=== PATIENT | female | born 1995 | race Hispanic/Latino ===

== ENCOUNTER 2023-04-06 14:00 | Emergency (ER) | payer MEDICAID ==
[~2023-04-06] VITALS: Ht 175.3 cm; Wt 73.9 kg
[2023-04-06 14:53] VITALS: BP 118/77
[2023-04-06 15:19] LABS: HEMATOCRIT 45.1 % (36-48); MEAN CORPUSCULAR HEMOGLOBIN 27.2 pg (27.0-33.0); MEAN CORPUSCULAR HGB CONC 32.4 g/dL (32.0-36.0); MEAN CORPUSCULAR VOLUME 84.1 fL (79-99); RED BLOOD CELL COUNT(AUTO) 5.36 MIL/uL (4.00-5.50); RED CELL DISTRIBUTION WIDTH 15.9 % (11.0-15.5); WHITE BLOOD COUNT (AUTO) 7.8 K/uL (4.8-10.8)
[2023-04-06 15:32] LABS: CREATININE 0.8 mg/dL (0.5-1.5); POTASSIUM 3.5 mmol/L (3.5-5.1)
[2023-04-06 15:35] LABS: APPEARANCE,URINE SL CLOUDY (CLEAR); BILIRUBIN,URINE MODERATE mg/dL (NEGATIVE); COLOR,URINE YELLOW (YELLOW); GLUCOSE, URINE (UA) NEGATIVE (NEGATIVE); KETONES,URINE 5 mg/dL (NEGATIVE); LEUKOCYTE ESTERASE ,URINE NEGATIVE Leu/uL (NEGATIVE); NITRATE,URINE NEGATIVE (NEGATIVE); OCCULT BLOOD,URINE TRACE-INTACT (NEGATIVE); PROTEIN,URINE 100 mg/dL (NEGATIVE); UROBILINOGEN,URINE 0.2 mg/dL (0.2-1.0)
[2023-04-06 15:39] LABS: ALBUMIN 3.8 g/dL (3.5-5.0); TOTAL PROTEIN, SERUM 8.5 g/dL (6.0-8.3)
[2023-04-06 15:41] LABS: HCG,QUALITATIVE URINE NEGATIVE (NEGATIVE)
[2023-04-06] MEDS ORDERED: ONDA4TAB10 PO (15:49)
[2023-04-06] MEDS ORDERED: DICY20TA2 PO (15:49)
[2023-04-06 15:50] LABS: BACTERIA,URINE FEW /HPF (None Seen); MUCUS,URINE MANY LPF (None Seen); SQUAMOUS EPITHELIAL CELL,UR MOD /HPF (0-2)
== END 2023-04-06 15:55 | disposition home or self-care (01) ==
LOC: EDH 14:00
DX: K52.9 Noninfective gastroenteritis and colitis, unspecified (principal)
CPT/HCPCS: 36415; 80053; 81001; 81025; 85027; 87088

== ENCOUNTER 2024-10-14 05:35 | Inpatient (IN) | payer SELFPAY ==
[~2024-10-14] VITALS: Ht 175.3 cm; Wt 81.4 kg
[2024-10-14] VITALS (8 sets, daily range): PULSE 91–137; RESP 18–21; TEMP 103; O2SAT 96–98
[~2024-10-14 05:35] MED LIST: DICY20TA2 PO; ONDA-243 PO
--- NOTE | 2024-10-14 05:46 | NUR ---
COVID, FLU AND STREP SWABS COLLECTED AND SENT
[2024-10-14 05:53] LABS: BASOPHILS # (AUTO) 0.02 K/uL (0.00-0.20); BASOPHILS % (AUTO) 0.2 % (0.0-5.0); EOSINOPHILS # (AUTO) 0.16 K/uL (0.00-0.70); EOSINOPHILS % (AUTO) 1.6 % (0.0-8.0); IMMATURE GRANULOCYTE ABSOLUTE 0.06 K/uL (0-1); LYMPHOCYTES # (AUTO) 0.5 K/uL (1.0-4.8); LYMPHOCYTES % (AUTO) 4.7 % (21.0-51.0); MEAN CORPUSCULAR HEMOGLOBIN 29.3 pg (27.0-33.0); MEAN CORPUSCULAR HGB CONC 33.4 g/dL (32.0-36.0); MEAN CORPUSCULAR VOLUME 87.8 fL (79-99); MONOCYTES # (AUTO) 0.9 K/uL (0.1-1.0); MONOCYTES % (AUTO) 8.5 % (3.0-13.0); NEUTROPHILS # (AUTO) 8.6 K/uL (1.8-7.7); NEUTROPHILS % (AUTO) 84.4 % (40.0-77.0); PLATELET COUNT (AUTO) 263 K/uL (130-400); RED BLOOD CELL COUNT(AUTO) 4.67 MIL/uL (4.00-5.50); RED CELL DISTRIBUTION WIDTH 13.8 % (11.0-15.5); WHITE BLOOD COUNT (AUTO) 10.2 K/uL (4.8-10.8)
[2024-10-14] MEDS ORDERED: IpraTROPium/alBUTERol SULFATE 3 ML SOLUTION IH PRN (06:00)
[2024-10-14 06:08] LABS: SARS-CoV-2, RNA, NAAT NEGATIVE SARS CoV-2 (NEGATIVE)
[2024-10-14 06:12] LABS: RAPID GROUP A STREP positive (NEGATIVE)
[2024-10-14 06:13] LABS: INFLUENZA TYPE A Negative For Type A (NEGATIVE); INFLUENZA TYPE B Negative For Type B (NEGATIVE)
[2024-10-14 06:15] LABS: CREATININE 0.7 mg/dL (0.5-1.0); POTASSIUM 3.5 mmol/L (3.5-5.1)
[2024-10-14] MEDS: MAGNESIUM 2GM PREMIX 50ML 100 ML IV ONE (06:47)
[2024-10-14] MEDS: ondanSETRON 4MG INJ ONE (06:47)
[2024-10-14] MEDS: ALBUTEROL 0.083% 2.5 MG/3 ML INH IH ONE ×2 (06:47→06:49)
[2024-10-14] MEDS: BUDESONIDE 0.5 MG/2 ML INH IH ONE (06:48)
[2024-10-14] MEDS: acetaMINOPHEN 500 MG TABLET ONE (06:48)
[2024-10-14] MEDS: MAGNESIUM 4GM PREMIX 100ML IV STA (06:49)
[2024-10-14] MEDS: acetaMINOPHEN 500 MG TABLET PO STA (06:49)
[2024-10-14] MEDS: ondanSETRON 4MG INJ IVP STA (06:49)
[2024-10-14] MEDS: LACTATED RINGERS 1000ML 1,000 ML IV ONE (06:50)
[2024-10-14] MEDS: Solu-medROL 125MG VIAL IVP ONE (06:50)
--- NOTE | 2024-10-14 06:52 | ERN ---
General Chief Complaint: Sepsis Stated Complaint: FEVER, HEADACHE, COUGH. SOB Time Seen by MD: 05:41 History of Present Illness Initial Comments Mrs Jimenez is a 29-year-old female significant past history of asthma who comes in today short of breath. Patient reports that she has been feeling sick for the last 2 days and states that she has been increasingly worsening shortness of breath. Patient has a history of asthma and takes inhalers but has not had a exacerbation in a long time Allergies: Coded Allergies: No Known Drug Allergies (Unverified Allergy, Unknown, 04/06/23) Home Meds Active Scripts Ondansetron (Ondansetron Odt) 4 Mg Tab.rapdis, 4 MG PO Q6HPRN PRN for NAUSEA/VOMITING for 4 Days, #16 TAB Prov:ANALIA GOMEZ [employer] 04/06/23 Dicyclomine HCl (Bentyl) 20 Mg Tab, 20 MG PO QID for abd pain for 5 Days, #20 TAB Prov:ANALIA GOMEZ [employer] 04/06/23 Past Medical History Past Medical History: Asthma, Migraines Past Surgical History: None Female( History) LMP: Oct 03, 2024 ROS Dictation Constitutional: Negative for fever,chills, and weight loss Eyes: Negative for injury, pain,redness, and discharge ENT: Negative for injury,pain or swelling Cardiovascular: Negative for chest pain, palpitations, and edema Respiratory: Positive for wheezing cough and shortness of Abdomen/GI: Negative for abdominal pain, nausea, vomiting, diarrhea, and constipation Back: Negative for injury and pain : Negative for injury, bleeding and discharge MS/Extremity: Negative for injury and deformity Skin: Negative for rash, and discoloration Neuro: Negative for headache, weakness, numbness, tingling, and seizure Psych: Negative for suicide ideation, homicidal ideation, and hallucinations Physical Exam Physical Exam Dictation General: Anxious female Head/Face: Normocephalic, atraumatic Eyes: PERRL, EOMI, vision at baseline ENT: oral cavity clear Neck: Trachea midline, supple, no nuchal rigidity Cardiovascular: Tachycardic Respiratory: Profound wheezing bilaterally in the upper and lower lung cee, tachypneic Abdomen: Soft, non-tender, non-distended, normal bowel sounds, no guarding or rebound. Skin: Warm, dry, normal turgor, no rash MS/Extremity: Pulses equal Neuro: COAx4, GCS 15, strength 5/5 Results Laboratory and Microbiology Lab and Micro Result Laboratory Tests Test 10/14/24 05:43 10/14/24 05:45 White Blood Count 10.2 K/uL (4.8-10.8) Red Blood Count 4.67 MIL/uL (4.00-5.50) Hemoglobin 13.7 g/dL (12.0-16.0) Hematocrit 41.0 % (36-48) Mean Corpuscular Volume 87.8 fL (79-99) Mean Corpuscular Hemoglobin 29.3 pg (27.0-33.0) Mean Corpuscular Hemoglobin Concent 33.4 g/dL (32.0-36.0) Red Cell Distribution Width 13.8 % (11.0-15.5) Platelet Count 263 K/uL (130-400) Mean Platelet Volume 9.4 fL (7.5-10.5) Immature Granulocyte % (Auto) 0.6 % (0-1) Neutrophils (%) (Auto) 84.4 % (40.0-77.0) H Lymphocytes (%) (Auto) 4.7 % (21.0-51.0) L Monocytes (%) (Auto) 8.5 % (3.0-13.0) Eosinophils (%) (Auto) 1.6 % (0.0-8.0) Basophils (%) (Auto) 0.2 % (0.0-5.0) Neutrophils # (Auto) 8.6 K/uL (1.8-7.7) H Lymphocytes # (Auto) 0.5 K/uL (1.0-4.8) L Monocytes # (Auto) 0.9 K/uL (0.1-1.0) Eosinophils # (Auto) 0.16 K/uL (0.00-0.70) Basophils # (Auto) 0.02 K/uL (0.00-0.20) Absolute Immature Granulocyte (auto 0.06 K/uL (0-1) Nucleated Red Blood Cells 0.0 % (0.0-0.19) White Cell Morphology Comment See comments Sodium Level 138 mmol/L (136-145) Potassium Level 3.5 mmol/L (3.5-5.1) Chloride Level 105 mmol/L (101-111) Carbon Dioxide Level 23 mmol/L (21-32) Blood Urea Nitrogen 7 mg/dL (7-18) Creatinine 0.7 mg/dL (0.5-1.0) Glomerular Filtration Rate Calc 121 mL/min (>90) Random Glucose 111 mg/dL (70-105) H Lactic Acid Level 1.7 mmol/L (0.8-2.5) Total Calcium 9.5 mg/dL (8.5-10.1) Total Creatine Kinase 63 U/L (21-232) Troponin I High Sensitivity < 4 ng/L (4-50) L Serum Test, Qualitative NEGATIVE (NEGATIVE) Influenza Type A Antigen Negative For Type A Influenza Type B Antigen Negative For Type B SARS-CoV-2, RNA, NAAT NEGATIVE SARS CoV-2 Group A Streptococcus Rapid positive (NEGATIVE) *A MDM Progress note by Dr. Paresh Man. I assumed care of this patient at 7:00 a.m. I have reviewed the nursing notes, vital signs and available diagnostic studies. I have reviewed the charting completed by my colleague. A strep is noted to be positive in the patient was given a dose of Rocephin. Re-examination at 8:15 a.m. shows diffuse inspiratory expiratory wheezing with prolonged expiratory phase and an O2 sat of 92% on room air. The patient reports mild improvement but still feels tight and heavy. She is thirsty and able to take some juice orally. At 8:20 a.m. I discussed the case with Dr. CASTRO, on-call for General Medicine to arrange admission for continued treatment for acute asthma exacerbation The patient and her family were been advised regarding the reason for admission Questions were invited and answered in layman's terms. This dictation was prepared using medical voice recognition software. Occasional voice recognition errors may occur. When identified, these errors have been corrected. While every attempt is made to correct errors during dictation, errors may still exist. ED Course Orders Procedure Category Date Status Time Iv Insertion CPOE 10/14/24 Transmitted 05:43 Pulse Ox(Continuous) RT 10/14/24 Transmitted 05:43 Vital Signs Per CPOE 10/14/24 Transmitted Routine 05:43 12 Lead Ekg Tracing- EKG 10/14/24 Logged Technical 05:43 Cbc With Differential LAB 10/14/24 Complete 05:43 Blood Cult STEVAN 10/14/24 In Process 05:43 Urinalysis Profile LAB 10/14/24 Logged 05:43 Culture Urine STEAVN 10/14/24 Logged 05:43 Creatine Kinase, Total LAB 10/14/24 Complete 05:43 Troponin I High LAB 10/14/24 Complete Sensitivity 05:43 Lactic Acid LAB 10/14/24 Complete 05:43 Basic Metabolic Panel LAB 10/14/24 Complete 05:43 Covid Rna Naat LAB 10/14/24 Complete 05:44 Influenza Type A & B, LAB 10/14/24 Complete Rapid 05:44 Rapid (Group A Strep) LAB 10/14/24 Complete 05:44 Chest 1vw RAD 10/14/24 Taken 05:44 Lactated Ringers PHA 10/14/24 In Process 1000ml (Lactated 06:00 Ipratropium/Albuterol PHA 10/14/24 Complete Neb (Duoneb) 06:00 Budesonide 0.5 Mg/2 PHA 10/14/24 Complete Ml Inh (Pulmicort 0. 06:00 Methylprednisolone PHA 10/14/24 Complete Succ 125mg (Solu-Medr 06:00 Testing, LAB 10/14/24 Complete Serum Hcg 05:47 Magnesium 2gm Premix PHA 10/14/24 Complete 50ml (Magnesium 2gm 06:30 Albuterol 0.083% PHA 10/14/24 Complete 2.5mg/3ml (Proventil 07:00 Albuterol 0.083% PHA 10/14/24 Complete 2.5mg/3ml (Proventil 06:32 Ondansetron 4mg Inj PHA 10/14/24 Complete (Zofran 4mg Inj) 06:36 Acetaminophen 500mg PHA 10/14/24 Complete Tab (Tylenol 500mg T 06:37 Acetaminophen 500mg PHA 10/14/24 Complete Tab (Tylenol 500mg T 06:43 Ondansetron 4mg Inj PHA 10/14/24 Complete (Zofran 4mg Inj) 06:43 Magnesium 4gm Premix PHA 10/14/24 Complete 100ml (Magnesium 4g 06:44 Ceftriaxone 2gm Vial PHA 10/14/24 Complete (Rocephin 2gm Inj) 08:30 Current Medications Medications (Trade) Dose Ordered Sig/Caron Route PRN Reason Start Time Stop Time Status Last Admin Dose Admin Acetaminophen (TYLenol 500MG TAB) 500 mg STK-MED ONCE .ROUTE 10/14/24 06:37 10/14/24 06:37 DC Acetaminophen (TYLenol 500MG TAB) 1,000 mg ONCE STAT PO 10/14/24 06:43 10/14/24 06:45 DC 10/14/24 06:49 Albuterol (DUOneb) 1 udvial Q20M PRN IH SHORTNESS OF BREATH 10/14/24 06:00 10/14/24 06:44 DC Albuterol Sulfate (Proventil 0.083% 2.5mg/3ml) 2.5 mg STK-MED ONCE IH 10/14/24 06:32 10/14/24 06:32 DC Albuterol Sulfate (Proventil 0.083% 2.5mg/3ml) 10 mg ONCE ONCE IH 10/14/24 07:00 10/14/24 07:01 DC 10/14/24 06:49 Budesonide (Pulmicort 0.5 Mg/2ml) 0.5 mg ONCE ONCE IH 10/14/24 06:00 10/14/24 06:01 DC 10/14/24 06:48 Ceftriaxone Sodium (Rocephin 2gm Inj) 2 gm ONCE ONCE IVPB 10/14/24 08:30 10/14/24 08:31 DC 10/14/24 08:31 Lactated Ringer's 1,000 ml @ 125 mls/hr ONCE ONCE IV 10/14/24 06:00 10/14/24 13:59 10/14/24 06:50 Magnesium Sulfate 100 ml @ As Directed STK-MED ONCE IV 10/14/24 06:30 10/14/24 06:31 DC Magnesium Sulfate (Magnesium 4gm Premix 100ml) 4 gm AD STAT IV 10/14/24 06:44 10/14/24 06:48 DC 10/14/24 06:49 Methylprednisolone Sodium Succinate (Solu-medROL 125MG) 125 mg ONCE ONCE IVP 10/14/24 06:00 10/14/24 06:01 DC 10/14/24 06:50 Ondansetron HCl (zoFRAN 4MG INJ) 4 mg ONCE STAT IVP 10/14/24 06:43 10/14/24 06:45 DC 10/14/24 06:49 Ondansetron HCl (zoFRAN 4MG INJ) 4 mg STK-MED ONCE .ROUTE 10/14/24 06:36 10/14/24 06:37 DC Vital Signs Date Time Temp Pulse Resp B/P (MAP) Pulse Ox O2 Delivery O2 Flow Rate FiO2 10/14/24 08:00 98.8 119 18 117/62 94 Room Air* 0 21 10/14/24 06:59 137 18 10/14/24 06:51 99.3 130 32 123/67 99 Aerosol Mask+ 60 10/14/24 06:49 102.9 10/14/24 06:48 102.9 10/14/24 05:36 102.9 152 32 133/73 90 Room Air DX & DISP Disposition: Observation Decision to Admit Date: Oct 14, 2024 Decision to Admit Time: 08:33 Departure Impression: Primary Impression: Acute severe refractory exacerbation of asthma Additional Impression: Strep pharyngitis Condition: Stable Referrals: SELF,REFERRAL (PCP) Time of Disposition: 08:34 RICARDO CORDOBA MD Oct 14, 2024 06:51 PARESH MAN MD Oct 14, 2024 08:34
[2024-10-14] MEDS: CEFTRIAXONE 2GM VIAL IVPB ONE (08:31)
--- NOTE | 2024-10-14 08:53 | HP ---
[facility] HISTORY AND PHYSICAL Date of Service: Oct 14, 2024 Time of Service: 08:53 HISTORY OF PRESENT ILLNESS: Date of service: 10/14/2024 This is a 29-year-old female with past medical history of asthma who presented to the hospital secondary to headaches, cough shortness of breath. Patient states for the past two days she has been having cough with associated shortness of breath. She is unable to perform her daily activities secondary to shortness of breath. Additionally she also states she has difficulty speaking secondary to her lungs feeling tight. She is not able to fully since she feels tight. She only uses albuterol is home as needed and is not on any inhalers. She has also noted frontal headache which started two days ago with associated fevers. She denied any neck pain, chest pain, abdominal pain, nausea, vomiting. She has had previous asthma exacerbations in the past. He is taking Excedrin at home for her headaches without improvement. Patient had difficulty with conversation secondary to her shortness of breath when seen at bedside. History is limited secondary to patient's symptoms. On presentations patient's temperature was 102.9, heart rate was 152, respiratory rate was 32, blood pressure was 133/73, patient was saturating 90% on room air. She was subsequently placed on aerosol mask Labs in the ED were notable for white count of 10.2, hemoglobin was 13.7, platelet count was 263k, sodium was 138, potassium was 3.5, creatinine was 0.7, blood glucose was 111, troponin was negative x1, serum was negative. Her strep throat was positive, flu and COVID was negative. Chest x-ray showed no acute infiltrates but lungs were noted to be hyperinflated. Patient received Solu-Medrol, Rocephin, DuoNebs, magnesium in the ED. REVIEW OF SYSTEMS CONSTITUTIONAL: Positive for fever, chills. Denied any weight loss. NEUROLOGICAL: Positive headaches. Denied any weakness, sensory deficits, paresthesias ENT: No hearing loss, otalgia, otorrhea, rhinitis, rhinorrhea, hoarseness, or sore throat. CARDIOVASCULAR: Denies any exertional angina, dyspnea on exertion, orthopnea, paroxysmal nocturnal dyspnea, palpitations, life-threatening arrhythmias, claudication. PULMONARY: Cough, sputum production, shortness of breath. Denied any hemoptysis GASTROINTESTINAL: Denies any type of dysphagia to either liquids or solids. Denies nausea, vomiting, pyrosis, early satiety, abdominal pain, diarrhea, constipation, or changes in stool consistency or caliber. Denies coffee-ground emesis, hematemesis, hematochezia, or melanotic stools. GENITOURINARY: Denies frequency, urgency, nocturia, hematuria or incontinence (Storage/Irritative symptoms.) Low urinary stream, straining to void, urinary intermittency or hesitancy, splitting of the voiding stream, terminal dribbling. ENDOCRINOLOGIC: Denies polyuria, polydipsia, polyphagia or heat/cold intolerances. HEMATOLOGIC: Denies thrombophilia/previous clots, or coagulopathy/bleeding disorders. ONCOLOGIC: Denies personal history of malignancy. DERMATOLOGIC: Denies rashes or pruritus. PSYCHIATRIC: Denies any suicidal or homicidal ideation. Denies hallucinations. PAST MEDICAL HISTORY: History of asthma PAST SURGICAL HISTORY: Denied any surgical history PAST SOCIAL HISTORY: Denied smoking, alcohol, FAMILY HISTORY: Denied any pertinent family Coded Allergies: No Known Drug Allergies (Unverified Allergy, Unknown, 04/06/23) PHYSICAL EXAM GENERAL APPEARANCE: The patient is awake, alert, and oriented, in no acute cardiopulmonary distress. Unable to speak in full sentences secondary to shortness of NEUROLOGICAL: Cranial nerves II-XII grossly intact. Motor is 5/5 in bilateral upper and lower extremities proximal to distal. No sensory deficits. HEENT: Face is symmetric. Pupils are equal and reactive. Extraocular movements are intact. NECK: Supple. No JVD. No thyromegaly. No submental, submandibular, pre- /postauricular, occipital or supraclavicular lymphadenopathy. CHEST: Normal chest expansion. No Telemetry. LUNGS: Diffuse inspiratory and expiratory wheezing present CARDIOVASCULAR: Regular. S1 and S2 normal. No appreciable rubs, murmurs or gallops. ABDOMEN: Soft, nontender, and nondistended. There is no rebound, voluntary guarding, or rigidity. : Deferred. No Zhang. EXTREMITIES: Non-edematous and not cyanotic. No clubbing. Good capillary refill. SKIN: No skin breakdown. Vital Sign (Last 24 Hours) 10/14/24 08:00 Temp 98.8 Pulse 119 Resp 18 B/P (MAP) 117/62 Pulse Ox 94 O2 Delivery Room Air* O2 Flow Rate 0 FiO2 21 LABS: Laboratory: Test 10/14/24 05:45 10/14/24 05:43 Range/Units Influenza Type A Antigen Negative For Type A NEGATIVE Influenza Type B Antigen Negative For Type B NEGATIVE SARS-CoV-2, RNA, NAAT NEGATIVE SARS CoV-2 NEGATIVE Group A Streptococcus Rapid positive *A NEGATIVE White Blood Count 10.2 4.8-10.8 K/uL Red Blood Count 4.67 4.00-5.50 MIL/uL Hemoglobin 13.7 12.0-16.0 g/dL Hematocrit 41.0 36-48 % Mean Corpuscular Volume 87.8 79-99 fL Mean Corpuscular Hemoglobin 29.3 27.0-33.0 pg Mean Corpuscular Hemoglobin Concent 33.4 32.0-36.0 g/dL Red Cell Distribution Width 13.8 11.0-15.5 % Platelet Count 263 130-400 K/uL Mean Platelet Volume 9.4 7.5-10.5 fL Immature Granulocyte % (Auto) 0.6 0-1 % Neutrophils (%) (Auto) 84.4 H 40.0-77.0 % Lymphocytes (%) (Auto) 4.7 L 21.0-51.0 % Monocytes (%) (Auto) 8.5 3.0-13.0 % Eosinophils (%) (Auto) 1.6 0.0-8.0 % Basophils (%) (Auto) 0.2 0.0-5.0 % Neutrophils # (Auto) 8.6 H 1.8-7.7 K/uL Lymphocytes # (Auto) 0.5 L 1.0-4.8 K/uL Monocytes # (Auto) 0.9 0.1-1.0 K/uL Eosinophils # (Auto) 0.16 0.00-0.70 K/uL Basophils # (Auto) 0.02 0.00-0.20 K/uL Absolute Immature Granulocyte (auto 0.06 0-1 K/uL Nucleated Red Blood Cells 0.0 0.0-0.19 % White Cell Morphology Comment See comments Sodium Level 138 136-145 mmol/L Potassium Level 3.5 3.5-5.1 mmol/L Chloride Level 105 101-111 mmol/L Carbon Dioxide Level 23 21-32 mmol/L Blood Urea Nitrogen 7 7-18 mg/dL Creatinine 0.7 0.5-1.0 mg/dL Glomerular Filtration Rate Calc 121 >90 mL/min Random Glucose 111 H 70-105 mg/dL Lactic Acid Level 1.7 0.8-2.5 mmol/L Total Calcium 9.5 8.5-10.1 mg/dL Total Creatine Kinase 63 21-232 U/L Troponin I High Sensitivity < 4 L 4-50 ng/L Serum Test, Qualitative NEGATIVE NEGATIVE Current Medications Medications (Trade) Dose Ordered Sig/Caron Route PRN Reason Start Time Stop Time Status Last Admin Dose Admin Acetaminophen (TYLenol 500MG TAB) 1,000 mg ONCE STAT PO 10/14/24 06:43 10/14/24 06:45 DC 10/14/24 06:49 1,000 MG Albuterol (DUOneb) 1 udvial Q20M PRN IH SHORTNESS OF BREATH 10/14/24 06:00 10/14/24 06:44 DC Magnesium Sulfate (Magnesium 4gm Premix 100ml) 4 gm AD STAT IV 10/14/24 06:44 10/14/24 06:48 DC 10/14/24 06:49 4 GM Ondansetron HCl (zoFRAN 4MG INJ) 4 mg ONCE STAT IVP 10/14/24 06:43 10/14/24 06:45 DC 10/14/24 06:49 4 MG DIAGNOSTICS / RADIOLOGY: [ ] ASSESSMENT: Severe asthma exacerbation POA Acute hypoxic respiratory failure secondary to asthma exacerbation Sepsis POA source unclear Positive strep Sinus tachycardia Migraine headache Lactic acidosis Metabolic acidosis PLAN: - patient to be admitted to ICU. Patient noted be tachypneic, tachycardic and unable to speak in full sentences. She will need to be monitored in the ICU at least for today until her respiratory symptoms stabilized. -in reference to asthma exacerbation. Patient will be started on DuoNebs q.4 hours. Obtain an ABG +. Patient will be started on Solu-Medrol 60 mg q.6 hours. Continue with Rocephin and doxycycline. Follow up on blood cultures. We will request consultation with critical Care. Personally discussed this case with critical Care. Follow up on recommendations -patient's asthma regimen we will need to be optimized since she is only taking albuterol at home. She will also need a PFT to be done as outpatient. - Trend lactic acid. Pt to be given NS bolus and continuos fluids thereafter - in reference to migraine headache. Patient will be started on Toradol p.r.n. for pain control. If pain does not improve we will consider CT head once her respiratory status improves. -start patient on Protonix daily -further orders per hospitalization course. Plan of care was discussed with patient at bedside. Advanced Care Planning Which of the following were discussed: Hospice care: Yes __ No _x_ Therapeutic options: Yes __ No __ Advance directives: Yes __ No __ Other discussions: Pt is full code Discussed with who?: patient (Patient, family or surrogates) Voluntary nature of this service was explained to the patient? Yes _x_ No __ Amount of time spent: 35 minutes Total critical care time spend > 35 min. SHAHNAZ cShulz MD, MD Oct 14, 2024 08:53
[2024-10-14] MEDS ORDERED: FAMOTIDINE 20MG VIAL IV SCH (09:00)
[2024-10-14] MEDS ORDERED: ALBUTEROL 0.083% 2.5 MG/3 ML INH IH ONE (09:00)
[2024-10-14 09:09] LABS: APPEARANCE,URINE CLEAR (CLEAR); BILIRUBIN,URINE NEGATIVE (NEGATIVE); COLOR,URINE COLORLESS (YELLOW); GLUCOSE, URINE (UA) NEGATIVE (NEGATIVE); KETONES,URINE 20 mg/dL (NEGATIVE); LEUKOCYTE ESTERASE ,URINE NEGATIVE Leu/uL (NEGATIVE); NITRATE,URINE NEGATIVE (NEGATIVE); PROTEIN,URINE NEGATIVE (NEGATIVE); UROBILINOGEN,URINE 0.2 mg/dL (0.2-1.0)
[2024-10-14 09:10] LABS: ADD UA MICROSCOPIC YES
[2024-10-14 09:13] LABS: MUCUS,URINE RARE LPF (None Seen); SQUAMOUS EPITHELIAL CELL,UR RARE /HPF (0-2)
[2024-10-14] MEDS: IpraTROPium/alBUTERol SULFATE 3 ML SOLUTION IH SCH ×2 (09:15→18:00)
[2024-10-14] MEDS: Solu-medROL 125MG VIAL IVP SCH (09:28)
[2024-10-14] MEDS: PANTOPrazole 40 MG/VIAL IVP SCH (09:28)
[2024-10-14] MEDS: DOXYCYCLINE 100MG+NS 250ML 250 ML IV SCH (09:28)
[2024-10-14 09:59] LABS: ABG BASE EXCESS -8.5 mmol/L (-2.0-3.0); ABG HCO3 15.6 mmol/L (21.0-28.0); ABG OXYGEN SATURATION 93.1 % (94.0-98.0); ABG PCO2 29 mmHg (32-45); ABG PH 7.353 (7.350-7.450); CARBON MONOXIDE 0.7 % (0.5-1.5); DEVICE COMMENT LR SAUL; HHb 6.8; PO2, ARTERIAL BG 69.9 mmHg (83.0-108.0); VENT MODE, BG RA (ROOM AIR)
[2024-10-14 10:31] LABS: HEMOGLOBIN A1C 5.6 % (4.0-6.0)
[2024-10-14] MEDS: 0.9%NACL 1000ML 1,000 ML IV SCH (10:36)
[2024-10-14] MEDS: 0.9% NACL 500ML IV.SOLN 500 ML IV ONE (10:36)
[2024-10-14 11:23] LABS: THYROID STIMULATING HORMONE 0.14 uIU/mL (0.36-3.74)
[2024-10-14] MEDS ORDERED: Solu-medROL 125MG VIAL IVP SCH (12:00)
[2024-10-14 12:40] LABS: MAGNESIUM 2.1 mg/dL (1.80-2.40); POTASSIUM 3.3 mmol/L (3.5-5.1)
[2024-10-14] MEDS: PoTASSium chloRIDE 20MEQ ER 20 MEQ ERTAB PO ONE (12:55)
[2024-10-14] MEDS: ketOROlac 15MG/ML VIAL (15MG/ML) IV PRN (12:55)
[2024-10-14] MEDS: LACTATED RINGERS IV ONE (13:17)
[2024-10-14] MEDS: IpraTROPium/alBUTERol SULFATE 3 ML SOLUTION IH ONE (13:50)
--- NOTE | 2024-10-14 14:30 | CONS ---
[facility] CONSULTATION NOTE Date Patient Seen: Oct 14, 2024 Time of Visit: 14:30 Supervising Physician: Manuel Lawrence MD Reason for Consultation: Asthma exacerbation Primary Care Physician: Self referral Outpatient Specialists: none Inpatient Consults: BIS PROBLEM LIST: Acute hypoxic respiratory failure secondary to asthma exacerbation Moderate asthma exacerbation POA Severe Sepsis POA Positive strep infection POA Sinus tachycardia Migraine headache Lactic acidosis, reolving Compensated metabolic acidosis 2/2 lactic acidosis from sepsis, POA Plan: CBC, CMP, CHEST XR, KIM CULTURE, Trend lactic acid procal CRP Broad spectrum abx Continue with systemic steroids and wean as soon as possible Maintain O2 sats above 92% CAP empiric coverage with Zosyn and doxycycline Influenza a and B negative COVID-19 negative Pulmicort q.12 hours via neb Duo nebs q.6 hours via neb PFTs in the morning Crystalloids IV fluids 30 mL/kilogram bolus Target MAP> 65 Per primary team request keep patient ICU status overnight to monitor respiratory status closely Re-evaluate tomorrow morning for downgrade. on DC pt will need to be discharged on JENNY+ LABA/ICS Pt to follow up with pulmonology of choice for PFT and follow-up management upon discharge HPI: HPI: This is a 29-year-old pleasant female with a past medical history of asthma who as per pt had been under control with only a rescue inhaler Albueterol. She presented to the emergency department for evaluation of headache, cough and shortness of breath. Patient reports that for the past today she has been having cough with associated shortness breath with dyspnea on exertion. She reports trouble speaking sentences due to a tight feeling on her chest. She has also noted associated fevers. Patient reports taking Excedrin without relief to headache or fever. She was admitted by the catalyst team to the ICU and we were consulted for critical care management and shortness of breaths. On assessment patient is awake alert and oriented x3 she is able to complete short sentences. And catheter breath in between. As per patient she denies any sore throat but is positive for strep throat. She denies any productive sputum. She reports dyspnea on exertion. On auscultation audible expiratory wheezing. Initially patient had arrived to the emergency department febrile with a temperature of 102.9 now afebrile at 97.9, heart rate between 90 and 110 initially 132 on arrival to emergency department. The patient is hemodynamically stable with a blood pressure 106/54 saturating 96% w/ 2L via NC. Initial CBC showed a neutrophils 84.4, chemistries sodium was 142 potassium 3.3 carbon dioxide was 17 with a BUN of five creatinine of 1.0 and GFR 79 glucose 150 mg/dL ketones on 0.2 total calcium 8.0 magnesium of 2.1. Lactic acid was 6.1. ABG with a pH of 7.35 pCO2 of 29 PO2 of 69.9 bicarb of 15.6 base excess- 8.5 potassium 3.3 glucose 161 mg/dL lactic acid 6.2. On chest x-ray lungs were clear normal heart size flattening of diaphragm consistent with asthma history. There is no pulmonary vascular congestion normal single chest x-ray. PAST MEDICAL HX: see above PAST SURGICAL HX: noncontributory SOCIAL HISTORY: No tobacco, ETOH, or illicit drug use Coded Allergies: No Known Drug Allergies (Unverified Allergy, Unknown, 04/06/23) REVIEW OF SYSTEMS: 12 point ROS reviewed with patient. Pertinent positives mentioned above. Otherwise negative. PHYSICAL EXAM: GENERAL: alert, weak, awake oriented x 3 HEENT: EOMI, Sclera non icteric, moist mucosa NECK: Supple, no JVD, trachea midline LUNGS: expiratory wheezes to all lobes HEART: Regular rate and rhythm. Normal S1 and S2, without murmurs ABD: Abdomen soft, nontender. Bowel sounds present EXT: No clubbing cyanosis or edema NEURO: Alert and oriented to person, follows commands Vital Signs (last 8hr) Date Time Temp Pulse Resp B/P (MAP) Pulse Ox O2 Delivery O2 Flow Rate FiO2 10/14/24 13:52 103 18 10/14/24 13:50 103 18 N/A Room Air 10/14/24 12:40 102 18 121/58 95 Room Air* 0 10/14/24 10:10 104 16 107/94 96 Room Air* 0 10/14/24 09:17 122 18 10/14/24 09:00 107 18 119/90 96 Room Air* 0 10/14/24 08:00 98.8 119 18 117/62 94 Room Air* 0 10/14/24 06:59 137 18 10/14/24 06:51 99.3 130 32 123/67 99 Aerosol Mask+ 60 10/14/24 06:49 102.9 10/14/24 06:48 102.9 LABS: Hematology Labs: Test 10/14/24 05:43 Range/Units White Blood Count 10.2 4.8-10.8 K/uL Red Blood Count 4.67 4.00-5.50 MIL/uL Hemoglobin 13.7 12.0-16.0 g/dL Hematocrit 41.0 36-48 % Mean Corpuscular Volume 87.8 79-99 fL Mean Corpuscular Hemoglobin 29.3 27.0-33.0 pg Mean Corpuscular Hemoglobin Concent 33.4 32.0-36.0 g/dL Red Cell Distribution Width 13.8 11.0-15.5 % Platelet Count 263 130-400 K/uL Mean Platelet Volume 9.4 7.5-10.5 fL Immature Granulocyte % (Auto) 0.6 0-1 % Neutrophils (%) (Auto) 84.4 H 40.0-77.0 % Lymphocytes (%) (Auto) 4.7 L 21.0-51.0 % Monocytes (%) (Auto) 8.5 3.0-13.0 % Eosinophils (%) (Auto) 1.6 0.0-8.0 % Basophils (%) (Auto) 0.2 0.0-5.0 % Neutrophils # (Auto) 8.6 H 1.8-7.7 K/uL Lymphocytes # (Auto) 0.5 L 1.0-4.8 K/uL Monocytes # (Auto) 0.9 0.1-1.0 K/uL Eosinophils # (Auto) 0.16 0.00-0.70 K/uL Basophils # (Auto) 0.02 0.00-0.20 K/uL Absolute Immature Granulocyte (auto 0.06 0-1 K/uL Nucleated Red Blood Cells 0.0 0.0-0.19 % White Cell Morphology Comment See comments Chemistry Labs: Test 10/14/24 11:46 10/14/24 10:30 10/14/24 05:43 Range/Units Sodium Level 142 136-145 mmol/L Potassium Level 3.3 L 3.5-5.1 mmol/L Chloride Level 110 101-111 mmol/L Carbon Dioxide Level 17 L 21-32 mmol/L Blood Urea Nitrogen 5 L 7-18 mg/dL Creatinine 1.0 0.5-1.0 mg/dL Glomerular Filtration Rate Calc 79 >90 mL/min Random Glucose 150 H 70-105 mg/dL Lactic Acid Level 6.1 H 0.8-2.5 mmol/L Total Calcium 8.0 L 8.5-10.1 mg/dL Magnesium Level 2.10 1.80-2.40 mg/dL Whole Blood Ketones Quantitative 0.2 0.0-0.6 mmol/L C-Reactive Protein, Quantitative 26.50 H 0.5-3.0 mg/L Procalcitonin < 0.05 L 0.05-0.5 ng/mL Thyroid Stimulating Hormone (TSH) 0.14 L 0.36-3.74 uIU/mL Hemoglobin A1c 5.6 4.0-6.0 % Estimated Average Glucose (eAG) 114 70-126 mg/dL Total Creatine Kinase 63 21-232 U/L Troponin I High Sensitivity < 4 L 4-50 ng/L Serum Test, Qualitative NEGATIVE NEGATIVE DIAGNOSTICS / RADIOLOGY RESULTS: Signed PATIENT: BAYRON WHITE MR#: [id number] : 1995 SEX: F AGE: 29 LOCATION: [facility] ORDER 5 STATUS: ADM IN REPORT#: [id number] SERVICE REASON: SOB ORDERING PHYSICIAN: RICARDO CORDOBA MD PROCEDURE: CXR1VW - CHEST 1VW CHEST 1VW REASON: SOB COMPARISON: None. FINDINGS: Single view of the chest was obtained. Lungs are clear. Heart size is normal. There is no pulmonary vascular congestion. Mediastinum and bony thorax appear unremarkable. IMPRESSION: 1. Normal single view chest x-ray. DICTATED BY: ANNALEE GIBBS MD DATE: 10/14/241657 ELECTRONICALLY SIGNED BY: ANNALEE GIBBS MD DATE: 10/14/24 170 PLAN NEURO: Minimize central acting medications as possible. Fall Precautions. Well lighted room through the day and minimize interruptions through the night to prevent acute delirium. PULMONARY: Supplemental 02 as needed Titrate Fio2 to keep Spo2 > or = 90% DuoNebs and CPT as needed IS hourly while awake for pulmonary hygiene Out of bed to chair as tolerated CARDIOVASCULAR: Follow hemodynamics. Titrate vasopressor to keep MAP >65 or systolic blood pressure >95mmHg LINES: piv GI & NUTRITION: Continue nutritional support Aspirations precautions Prokinetic agents and laxatives as needed KIDNEYS & ELECTROLYTES: Strict monitoring of intake and output Daily weights Avoid nephrotoxic agents Monitor electrolytes and replace as needed Goal urine output of 30mL/hr or 0.5mL/kg/hr Urine output: [ ] Fluid Balance: [ ] ENDOCRINE: Maintain blood glucose between 100-180 at all times. Insulin sliding scale for blood glucose management INFECTIOUS DISEASE: Trend temperature. Kim-culture if febrile. Micro: [ ] flu A and B neg covid neg' strep + Blood urine sputum Antibiotics: zosyn and doxy HEMATOLOGY & COAGULATION: Monitor H&H. Keep Hgb > 7 Transfuse 1 unit of PRBC for Hgb < 7 Transfuse 1 pack of platelets of platelets < 20, 000 Watch for any signs and symptoms of bleeding SKIN: Pressure ulcer prevention per facility protocol Rehab: PT/OT Prophylaxis: GI: Protonix DVT: Lovenox Code Status: Full Resuscitation Disposition: ICU Other: Total patient care time exceeds 60 minutes excluding all procedures. Case was discussed and seen with my supervising physician. The above plan was formulated and agreed upon. JUNE [facility] Oct 14, 2024 14:30
[2024-10-14] MEDS ORDERED: BUDESONIDE 0.5 MG/2 ML INH IH SCH (15:00)
[2024-10-14] MEDS: ZOSYN 3.375GM +NS 50ML IV SCH (15:16)
[2024-10-14] MEDS: monteLUKAST sodIUM 10 MG TAB PO SCH (15:16)
[2024-10-14] MEDS: acetaMINOPHEN 500 MG TABLET PO PRN (15:24)
[2024-10-14 16:00] LABS: CREATININE 0.9 mg/dL (0.5-1.0); POTASSIUM 3.7 mmol/L (3.5-5.1)
--- NOTE | 2024-10-14 17:00 | HMCIMG ---
CHEST 1VW REASON: SOB COMPARISON: None. FINDINGS: Single view of the chest was obtained. Lungs are clear. Heart size is normal. There is no pulmonary vascular congestion. Mediastinum and bony thorax appear unremarkable. IMPRESSION: 1. Normal single view chest x-ray.
[2024-10-14] MEDS: BUDESONIDE 0.5 MG/2 ML INH IH SCH (18:00)
[2024-10-15] VITALS (13 sets, daily range): BP systolic 107–133; BP diastolic 64–76; PULSE 73–97; RESP 16–21; TEMP 97.7–98.7; O2SAT 96–98
--- NOTE | 2024-10-15 01:40 | NUR ---
ADMIT NOTE ADMIT TO ROOM 408 VIA STRETCHER FROM ER, PATIENT AWAKE, ALERT, OX3, PATIENTS AT BEDSIDE, TEACH PLAN OF CARE AND EXPECTED OUTCOME, BOTH VERBALIZE UNDER STANDING VIA TEACH BACK
[2024-10-15] MEDS ORDERED: ALBU18HF7 IH (02:11)
[2024-10-15] MEDS: ZOSYN 3.375GM +NS 50ML IV SCH (02:30)
--- NOTE | 2024-10-15 03:17 | EKG ---
[facility] Test Date: 2024-10-14 Test Time: 05:49:06 Pat Name: BAYRON WHITE Department: [facility] Room: 408 1 Gender: F Supervisor Assembling: [id number] : 1995 Requested By: RICARDO CORDOBA Order Number: [id number] Reading MD: Jasper Lowery Measurements Intervals [place] Rate: 134 P: 76 [place]: 152 QRS: 49 QRSD: 81 T: -23 QT: 279 QTc: 417 Interpretive Statements Sinus tachycardia Probable left atrial enlargement No previous ECG available for comparison Electronically Signed On 10-15-2024 21:32:06 FIELD REPRESENTATIVES DIRECTOR by Jasper Lowery Please click the below link to view image of tracing.
[2024-10-15 06:27] LABS: BASOPHILS # (AUTO) 0.04 K/uL (0.00-0.20); BASOPHILS % (AUTO) 0.2 % (0.0-5.0); IMMATURE GRANULOCYTE ABSOLUTE 0.11 K/uL (0-1); LYMPHOCYTES # (AUTO) 0.7 K/uL (1.0-4.8); LYMPHOCYTES % (AUTO) 3.7 % (21.0-51.0); MEAN CORPUSCULAR HEMOGLOBIN 29.4 pg (27.0-33.0); MEAN CORPUSCULAR HGB CONC 32.4 g/dL (32.0-36.0); MEAN CORPUSCULAR VOLUME 90.9 fL (79-99); MONOCYTES # (AUTO) 0.7 K/uL (0.1-1.0); MONOCYTES % (AUTO) 3.6 % (3.0-13.0); NEUTROPHILS % (AUTO) 91.9 % (40.0-77.0); PLATELET COUNT (AUTO) 256 K/uL (130-400); RED BLOOD CELL COUNT(AUTO) 4.18 MIL/uL (4.00-5.50); RED CELL DISTRIBUTION WIDTH 14.6 % (11.0-15.5); WHITE BLOOD COUNT (AUTO) 19.6 K/uL (4.8-10.8)
[2024-10-15 06:47] LABS: ALBUMIN 3.4 g/dL (3.5-5.0); BILIRUBIN,TOTAL 0.2 mg/dL (0.2-1.0); CREATININE 0.7 mg/dL (0.5-1.0); POTASSIUM 4.2 mmol/L (3.5-5.1); TOTAL PROTEIN, SERUM 7.1 g/dL (6.0-8.3)
--- NOTE | 2024-10-15 08:44 | HMCIMG ---
CHEST 1VW REASON: hypoxic COMPARISON: 10/14/2024 FINDINGS: Single view of the chest was obtained. Lungs are clear. Heart size is normal. There is no pulmonary vascular congestion. Mediastinum and bony thorax appear unremarkable. IMPRESSION: 1. Normal single view chest x-ray.
[2024-10-15] MEDS: ENOXAPARIN SODIUM 30 MG/0.3 ML SQ SCH (09:00)
[2024-10-15] MEDS ORDERED: CEFTRIAXONE 2GM VIAL IVPB SCH (09:00)
--- NOTE | 2024-10-15 11:58 | NUR ---
Nurse GEE Met with pt and at bedside. Pt lives with mom and feels safe in her home environment. Pt is independent and drives. No healthcare services needed per patient. Community Resources Packet given to pt. [facility] Addendum: 10/15/24 at 1202 by SHARONDA POSADA RN CM Amended: Links added.
--- NOTE | 2024-10-15 13:48 | PN ---
[facility] PROGRESS NOTE Date of Service: Oct 15, 2024 Time of Service: 13:47 SUBJECTIVE: [ ] 10/15/24 patient was seen and examined and case discussed with RN and family by the bedside. Breathing slightly better. We will continue with [id number] bronchodilator treatment, IV Solu-Medrol and other medications for her asthma REVIEW OF SYSTEMS CONSTITUTIONAL: Positive for fever, chills. Denied any weight loss. NEUROLOGICAL: Positive headaches. Denied any weakness, sensory deficits, paresthesias ENT: No hearing loss, otalgia, otorrhea, rhinitis, rhinorrhea, hoarseness, or sore throat. CARDIOVASCULAR: Denies any exertional angina, dyspnea on exertion, orthopnea, paroxysmal nocturnal dyspnea, palpitations, life-threatening arrhythmias, claudication. PULMONARY: Cough, sputum production, shortness of breath. Denied any hemoptysis GASTROINTESTINAL: Denies any type of dysphagia to either liquids or solids. Denies nausea, vomiting, pyrosis, early satiety, abdominal pain, diarrhea, constipation, or changes in stool consistency or caliber. Denies coffee-ground emesis, hematemesis, hematochezia, or melanotic stools. GENITOURINARY: Denies frequency, urgency, nocturia, hematuria or incontinence (Storage/Irritative symptoms.) Low urinary stream, straining to void, urinary intermittency or hesitancy, splitting of the voiding stream, terminal dribbling. ENDOCRINOLOGIC: Denies polyuria, polydipsia, polyphagia or heat/cold intolerances. HEMATOLOGIC: Denies thrombophilia/previous clots, or coagulopathy/bleeding disorders. ONCOLOGIC: Denies personal history of malignancy. DERMATOLOGIC: Denies rashes or pruritus. PSYCHIATRIC: Denies any suicidal or homicidal ideation. Denies hallucinations. PHYSICAL EXAM GENERAL APPEARANCE: The patient is awake, alert, and oriented, in no acute cardiopulmonary distress. Unable to speak in full sentences secondary to shortness of NEUROLOGICAL: Cranial nerves II-XII grossly intact. Motor is 5/5 in bilateral upper and lower extremities proximal to distal. No sensory deficits. HEENT: Face is symmetric. Pupils are equal and reactive. Extraocular movements are intact. NECK: Supple. No JVD. No thyromegaly. No submental, submandibular, pre- /postauricular, occipital or supraclavicular lymphadenopathy. CHEST: Normal chest expansion. No Telemetry. LUNGS: Diffuse inspiratory and expiratory wheezing present CARDIOVASCULAR: Regular. S1 and S2 normal. No appreciable rubs, murmurs or gallops. ABDOMEN: Soft, nontender, and nondistended. There is no rebound, voluntary guarding, or rigidity. : Deferred. No Zhang. EXTREMITIES: Non-edematous and not cyanotic. No clubbing. Good capillary refill. SKIN: No skin breakdown. Vital Signs (last 8hr) Date Time Temp Pulse Resp B/P (MAP) Pulse Ox O2 Delivery O2 Flow Rate FiO2 10/15/24 11:10 97.7 96 18 128/76 98 Room Air 10/15/24 11:09 82 21 10/15/24 08:08 98.2 95 20 130/73 98 Room Air 10/15/24 06:57 97 19 N/A Room Air 2.0 28 10/15/24 06:57 86 21 LABS: Laboratory: Test 10/15/24 11:17 10/15/24 06:14 10/14/24 15:41 10/14/24 11:46 Range/Units Lactic Acid Level 3.6 H 0.8-2.5 mmol/L White Blood Count 19.6 H 4.8-10.8 K/uL Red Blood Count 4.18 4.00-5.50 MIL/uL Hemoglobin 12.3 12.0-16.0 g/dL Hematocrit 38.0 36-48 % Mean Corpuscular Volume 90.9 79-99 fL Mean Corpuscular Hemoglobin 29.4 27.0-33.0 pg Mean Corpuscular Hemoglobin Concent 32.4 32.0-36.0 g/dL Red Cell Distribution Width 14.6 11.0-15.5 % Platelet Count 256 130-400 K/uL Mean Platelet Volume 9.8 7.5-10.5 fL Immature Granulocyte % (Auto) 0.6 0-1 % Neutrophils (%) (Auto) 91.9 H 40.0-77.0 % Lymphocytes (%) (Auto) 3.7 L 21.0-51.0 % Monocytes (%) (Auto) 3.6 3.0-13.0 % Eosinophils (%) (Auto) 0.0 0.0-8.0 % Basophils (%) (Auto) 0.2 0.0-5.0 % Neutrophils # (Auto) 18.0 H 1.8-7.7 K/uL Lymphocytes # (Auto) 0.7 L 1.0-4.8 K/uL Monocytes # (Auto) 0.7 0.1-1.0 K/uL Eosinophils # (Auto) 0.00 0.00-0.70 K/uL Basophils # (Auto) 0.04 0.00-0.20 K/uL Absolute Immature Granulocyte (auto 0.11 0-1 K/uL Nucleated Red Blood Cells 0.0 0.0-0.19 % Sodium Level 144 136-145 mmol/L Potassium Level 4.2 3.5-5.1 mmol/L Chloride Level 113 H 101-111 mmol/L Carbon Dioxide Level 24 21-32 mmol/L Blood Urea Nitrogen 6 L 7-18 mg/dL Creatinine 0.7 0.5-1.0 mg/dL Glomerular Filtration Rate Calc 121 >90 mL/min Random Glucose 139 H 70-105 mg/dL Total Calcium 8.8 8.5-10.1 mg/dL Total Bilirubin 0.2 0.2-1.0 mg/dL Aspartate Amino Transf (AST/SGOT) 20 10-37 U/L Alanine Aminotransferase (ALT/SGPT) 15 12-78 U/L Alkaline Phosphatase 56 50-136 U/L C-Reactive Protein, Quantitative 30.40 H 0.5-3.0 mg/L Total Protein 7.1 6.0-8.3 g/dL Albumin 3.4 L 3.5-5.0 g/dL Procalcitonin < 0.05 L 0.05-0.5 ng/mL Lactate Dehydrogenase 144 81-234 U/L Magnesium Level 2.10 1.80-2.40 mg/dL Test 10/14/24 10:30 10/14/24 09:57 10/14/24 08:40 10/14/24 05:45 Range/Units Whole Blood Ketones Quantitative 0.2 0.0-0.6 mmol/L Thyroid Stimulating Hormone (TSH) 0.14 L 0.36-3.74 uIU/mL Blood Gas Specimen Type Arterial Arterial Blood pH 7.353 7.350-7.450 Arterial Blood Partial Pressure CO2 29 L 32-45 mmHg Arterial Blood Partial Pressure O2 69.9 L 83.0-108.0 mmHg Arterial Blood HCO3 15.6 L 21.0-28.0 mmol/L Arterial Blood Oxygen Saturation 93.1 L 94.0-98.0 % Arterial Blood Base Excess -8.5 L -2.0-3.0 mmol/L Hemoglobin (Blood Gas) 13.0 12.0-16.0 g/dL Sodium (Blood Gas) 142 136-145 MMOL/L Bedside Potassium (Blood Gas) 3.3 L 3.4-4.5 MMOL/L Bedside Chloride (Blood Gas) 107 98-107 MMOL/L Bedside Glucose (Blood Gas) 161 H 65-95 MG/DL Bedside Ionized Calcium (Blood Gas) 1.24 1.15-1.33 MMOL/L Bedside Lactic Acid (Blood Gas) 6.20 *H 0.36-0.75 MMOL/L Blood Gas Temperature 37.0 35.5-37.0 CELSIUS Blood Gas Vent Mode RA ROOM AIR FiO2 21.0 % Blood Gas Specimen Comment LR DEBI Urine Color COLORLESS YELLOW Urine Appearance CLEAR CLEAR Urine pH 5.0 5.0-8.0 Urine Specific Donald 1.006 1.001-1.031 Urine Protein NEGATIVE NEGATIVE mg/dL Urine Glucose (UA) NEGATIVE NEGATIVE mg/dL Urine Ketones 20 H NEGATIVE mg/dL Urine Occult Blood +- (TRACE) H NEGATIVE Urine Nitrate NEGATIVE NEGATIVE Urine Bilirubin NEGATIVE NEGATIVE mg/dL Urine Urobilinogen 0.2 0.2-1.0 mg/dL Urine Leukocyte Esterase NEGATIVE NEGATIVE Irina/uL Urine RBC None 0-1 /HPF Urine WBC 2-5 H 0-1 /HPF Urine Squamous Epithelial Cells RARE 0-2 /HPF Urine Bacteria None None Seen /HPF Influenza Type A Antigen Negative For Type A NEGATIVE Influenza Type B Antigen Negative For Type B NEGATIVE SARS-CoV-2, RNA, NAAT NEGATIVE SARS CoV-2 NEGATIVE Group A Streptococcus Rapid positive *A NEGATIVE Test 10/14/24 05:43 Range/Units White Cell Morphology Comment See comments Hemoglobin A1c 5.6 4.0-6.0 % Estimated Average Glucose (eAG) 114 70-126 mg/dL Total Creatine Kinase 63 21-232 U/L Troponin I High Sensitivity < 4 L 4-50 ng/L Serum Test, Qualitative NEGATIVE NEGATIVE Current Medications Medications (Trade) Dose Ordered Sig/Caron Route PRN Reason Start Time Stop Time Status Last Admin Dose Admin Acetaminophen (TYLenol 500MG TAB) 500 mg Q6H PRN PO MILD PAIN (1-3) 10/14/24 09:00 11/13/24 08:59 10/14/24 23:55 500 MG Acetaminophen (TYLenol 500MG TAB) 1,000 mg ONCE STAT PO 10/14/24 06:43 10/14/24 06:45 DC 10/14/24 06:49 1,000 MG Albuterol (DUOneb) 1 UDVIAL Q4H IH 10/14/24 09:00 10/14/24 13:15 DC 10/14/24 09:15 1 UDVIAL Albuterol (DUOneb) 1 UDVIAL [id number] IH 10/14/24 18:00 11/13/24 17:59 10/15/24 11:07 1 UDVIAL Albuterol (DUOneb) 1 udvial Q20M PRN IH SHORTNESS OF BREATH 10/14/24 06:00 10/14/24 06:44 DC Budesonide (Pulmicort 0.5 Mg/2ml) 0.5 mg BIDRESP IH 10/14/24 15:00 10/14/24 17:59 DC Budesonide (Pulmicort 0.5 Mg/2ml) 0.5 mg BIDRESP IH 10/14/24 18:00 11/13/24 17:59 10/15/24 06:55 0.5 MG Ceftriaxone Sodium (Rocephin 2gm Inj) 2 gm Q24H IVPB 10/15/24 09:00 10/14/24 14:43 DC Doxycycline Hyclate 250 ml @ 125 mls/hr Q12H IV 10/14/24 09:00 10/24/24 08:59 10/15/24 09:19 125 MLS/HR Enoxaparin Sodium (Lovenox) 30 mg DAILY SQ 10/15/24 09:00 11/14/24 08:59 Famotidine (Pepcid 20mg Vial) 20 mg BID IV 10/14/24 09:00 10/14/24 09:12 DC Ketorolac Tromethamine (toRADol) 15 mg Q6H PRN IV MODERATE PAIN (4-6) 10/14/24 09:00 10/19/24 08:59 10/14/24 23:55 15 MG Magnesium Sulfate (Magnesium 4gm Premix 100ml) 4 gm AD STAT IV 10/14/24 06:44 10/14/24 06:48 DC 10/14/24 06:49 4 GM Methylprednisolone Sodium Succinate (Solu-medROL 125MG) 60 mg Q6H IVP 10/14/24 09:30 11/13/24 09:29 10/15/24 09:18 60 MG Methylprednisolone Sodium Succinate (Solu-medROL 125MG) 60 mg Q6H IVP 10/14/24 12:00 10/14/24 09:12 DC Montelukast Sodium (SinguLAIR) 10 mg DAILY PO 10/14/24 15:00 11/13/24 14:59 10/15/24 09:18 10 MG Ondansetron HCl (zoFRAN 4MG INJ) 4 mg ONCE STAT IVP 10/14/24 06:43 10/14/24 06:45 DC 10/14/24 06:49 4 MG Pantoprazole Sodium (PROTonix 40MG INJ) 40 mg DAILY IVP 10/14/24 09:30 11/13/24 09:29 10/15/24 09:18 40 MG Piperacillin Sod/ Tazobactam Sod (Zosyn 3.375gm+NS 50ml) 3.375 gm Q8H IV 10/14/24 15:00 10/15/24 01:23 DC 10/14/24 15:16 3.375 GM Piperacillin Sod/ Tazobactam Sod (Zosyn 3.375gm+NS 50ml) 3.375 gm Q8H IV 10/15/24 02:00 10/25/24 01:59 10/15/24 09:18 3.375 GM Sodium Chloride 1,000 ml @ 125 mls/hr Q8H IV 10/14/24 10:30 10/14/24 13:10 DC 10/14/24 10:36 125 MLS/HR DIAGNOSTICS / RADIOLOGY: [ ] ASSESSMENT: Severe asthma exacerbation POA Acute hypoxic respiratory failure secondary to asthma exacerbation Sepsis POA source unclear Positive strep Sinus tachycardia Migraine headache Lactic acidosis Metabolic acidosis PLAN: - patient to be admitted to ICU. Patient noted be tachypneic, tachycardic and unable to speak in full sentences. She will need to be monitored in the ICU at least for today until her respiratory symptoms stabilized. -in reference to asthma exacerbation. Patient will be started on DuoNebs q.4 hours. Obtain an ABG +. Patient will be started on Solu-Medrol 60 mg q.6 hours. Continue with Rocephin and doxycycline. Follow up on blood cultures. We will request consultation with critical Care. Personally discussed this case with critical Care. Follow up on recommendations -patient's asthma regimen we will need to be optimized since she is only taking albuterol at home. She will also need a PFT to be done as outpatient. - Trend lactic acid. Pt to be given NS bolus and continuos fluids thereafter - in reference to migraine headache. Patient will be started on Toradol p.r.n. for pain control. If pain does not improve we will consider CT head once her respiratory status improves. -start patient on Protonix daily -further orders per hospitalization course. Plan of care was discussed with patient at bedside. Advanced Care Planning Which of the following were discussed: Hospice care: Yes __ No _x_ Therapeutic options: Yes __ No __ Advance directives: Yes __ No __ Other discussions: Pt is full code Discussed with who?: patient (Patient, family or surrogates) Voluntary nature of this service was explained to the patient? Yes _x_ No __ Amount of time spent: 35 minutes Total critical care time spend > 35 min. EMILIA Valadez MD, MD Oct 15, 2024 13:48
[2024-10-15] MEDS: IpraTROPium/alBUTERol SULFATE 3 ML SOLUTION IH ONE ×2 (18:38→23:24)
[2024-10-15] MEDS: guaiFENesin-DM 200/20MG 10ML PO PRN (21:17)
[2024-10-15] MEDS: LACTULOSE 20 GM/30 ML UDCUP PO PRN (21:17)
--- NOTE | 2024-10-15 22:32 | PN ---
[facility] PROGRESS NOTE Date Patient Seen: Oct 15, 2024 Time of Visit: 11:27 Supervising Physician: STEPHANIE LOPEZ MD Primary Care Physician: Self referral Outpatient Specialists: none Inpatient Consults: HAN PROBLEM LIST: Acute hypoxic respiratory failure secondary to asthma exacerbation Moderate asthma exacerbation POA Severe Sepsis POA Positive strep infection POA Sinus tachycardia Migraine headache Lactic acidosis, reolving Compensated metabolic acidosis 2/2 lactic acidosis from sepsis, POA Plan: DISCONTINUE ZOSYN DISCONTINUE DOXYCILYNE START ON LEVAQUIN 750 MG PO DAILY X 5 DAYS DISCONTINUE LOVENOX DISCONTINUE PROTONIX PUT ON FLOW METER 6 MINUTES WALK TEST Continue with systemic steroids and wean as soon as possible Maintain O2 sats above 92% INTERVAL HISTORY: patient is a 29 year old lady admitted due to asthma exacerbation ' given steroids and antibiotic in the form zosyn and doxyciclyne plan is to discontinue both and start her on Levaquin 750mg po daily x 5 days stephanie denies fever, chills, chest pain or palpitations, no new issues reported asthma exacerbation improving. REVIEW OF SYSTEMS: 12 point ROS reviewed with patient. Pertinent positives mentioned above. Otherwise negative. PHYSICAL EXAM: GENERAL: alert, weak, awake oriented x 3 HEENT: EOMI, Sclera non icteric, moist mucosa NECK: Supple, no JVD, trachea midline LUNGS: expiratory wheezes to all lobes HEART: Regular rate and rhythm. Normal S1 and S2, without murmurs ABD: Abdomen soft, nontender. Bowel sounds present EXT: No clubbing cyanosis or edema NEURO: Alert and oriented to person, follows commands Vital Signs (last 8hr) Date Time Temp Pulse Resp B/P (MAP) Pulse Ox O2 Delivery O2 Flow Rate FiO2 10/15/24 19:55 98.8 84 20 107/64 97 Room Air 10/15/24 19:16 97 19 N/A Room Air 10/15/24 19:13 93 21 10/15/24 16:33 98.1 80 18 109/66 99 Room Air LABS: Hematology Labs: Test 10/15/24 06:14 10/14/24 05:43 Range/Units White Blood Count 19.6 H 4.8-10.8 K/uL Red Blood Count 4.18 4.00-5.50 MIL/uL Hemoglobin 12.3 12.0-16.0 g/dL Hematocrit 38.0 36-48 % Mean Corpuscular Volume 90.9 79-99 fL Mean Corpuscular Hemoglobin 29.4 27.0-33.0 pg Mean Corpuscular Hemoglobin Concent 32.4 32.0-36.0 g/dL Red Cell Distribution Width 14.6 11.0-15.5 % Platelet Count 256 130-400 K/uL Mean Platelet Volume 9.8 7.5-10.5 fL Immature Granulocyte % (Auto) 0.6 0-1 % Neutrophils (%) (Auto) 91.9 H 40.0-77.0 % Lymphocytes (%) (Auto) 3.7 L 21.0-51.0 % Monocytes (%) (Auto) 3.6 3.0-13.0 % Eosinophils (%) (Auto) 0.0 0.0-8.0 % Basophils (%) (Auto) 0.2 0.0-5.0 % Neutrophils # (Auto) 18.0 H 1.8-7.7 K/uL Lymphocytes # (Auto) 0.7 L 1.0-4.8 K/uL Monocytes # (Auto) 0.7 0.1-1.0 K/uL Eosinophils # (Auto) 0.00 0.00-0.70 K/uL Basophils # (Auto) 0.04 0.00-0.20 K/uL Absolute Immature Granulocyte (auto 0.11 0-1 K/uL Nucleated Red Blood Cells 0.0 0.0-0.19 % White Cell Morphology Comment See comments Chemistry Labs: Test 10/15/24 11:17 10/15/24 06:14 10/14/24 15:41 10/14/24 11:46 Range/Units Lactic Acid Level 3.6 H 0.8-2.5 mmol/L Sodium Level 144 136-145 mmol/L Potassium Level 4.2 3.5-5.1 mmol/L Chloride Level 113 H 101-111 mmol/L Carbon Dioxide Level 24 21-32 mmol/L Blood Urea Nitrogen 6 L 7-18 mg/dL Creatinine 0.7 0.5-1.0 mg/dL Glomerular Filtration Rate Calc 121 >90 mL/min Random Glucose 139 H 70-105 mg/dL Total Calcium 8.8 8.5-10.1 mg/dL Total Bilirubin 0.2 0.2-1.0 mg/dL Aspartate Amino Transf (AST/SGOT) 20 10-37 U/L Alanine Aminotransferase (ALT/SGPT) 15 12-78 U/L Alkaline Phosphatase 56 50-136 U/L C-Reactive Protein, Quantitative 30.40 H 0.5-3.0 mg/L Total Protein 7.1 6.0-8.3 g/dL Albumin 3.4 L 3.5-5.0 g/dL Procalcitonin < 0.05 L 0.05-0.5 ng/mL Lactate Dehydrogenase 144 81-234 U/L Magnesium Level 2.10 1.80-2.40 mg/dL Test 10/14/24 10:30 10/14/24 05:43 Range/Units Whole Blood Ketones Quantitative 0.2 0.0-0.6 mmol/L Thyroid Stimulating Hormone (TSH) 0.14 L 0.36-3.74 uIU/mL Hemoglobin A1c 5.6 4.0-6.0 % Estimated Average Glucose (eAG) 114 70-126 mg/dL Total Creatine Kinase 63 21-232 U/L Troponin I High Sensitivity < 4 L 4-50 ng/L Serum Test, Qualitative NEGATIVE NEGATIVE DIAGNOSTICS / RADIOLOGY RESULTS: [ ] PLAN NEURO: Minimize central acting medications as possible. Maintain fall precautions, adequate lighting during the day PULMONARY: Supplemental 02 as needed. Maintain aspiration precautions at all times CARDIOVASCULAR: Follow hemodynamics. Vital signs per facility protocol GI & NUTRITION: Continue with nutritional support. Continue stool softeners and laxatives as needed. KIDNEYS & ELECTROLYTES: Strict monitoring of intake, output and overall fluid balance. Avoid nephrotoxic medications to the extent possible. Medications to be dosed according to renal function. Monitor electrolytes and replace as needed ENDOCRINE: Maintain blood glucose between 100-180 at all times. Hypoglycemia protocol in place INFECTIOUS DISEASE: Trend temperature, WBC and procalcitonin level Follow cultures, deescalate antibiotics as soon as possible. Panculture if new onset fever ONCOLOGY/HEMATOLOGY/COAGULATION: Monitor for s/s of bleeding Monitor hemoglobin, coagulation studies as needed SKIN: Pressure ulcer prevention per facility protocol Specialty mattress ORTHO/REHAB: Continue PT/OT Prophylaxis: Continue GI and DVT prophylaxis Code Status: Full Resuscitation Disposition: TBD Other: Total patient care time exceeds 35 minutes excluding all procedures. ATTESTATION BY PHYSICIAN Documentation assistance provided by a scribe, information recorded by the scribe was done at my direction and has been reviewed and validated by me." RASHAWN BROWN MD I personally scribed for JOHN BROWN MD ([email or web address]) on 10/15/24 at 22:32. Electronically submitted by Shadia Luis ([email or web address]). JOHN BROWN MD Oct 15, 2024 22:32
[2024-10-16] VITALS (10 sets, daily range): BP systolic 113–126; BP diastolic 60–74; PULSE 65–112; RESP 17–21; TEMP 98.1–98.8; O2SAT 96–97
[2024-10-16] MEDS: levoFLOXacin 750 MG TABLET PO SCH (08:53)
[2024-10-16] MEDS: predniSONE 20 MG TABLET PO ONE (08:53)
[2024-10-16] MEDS ORDERED: LEVO750T40 PO (14:12)
[2024-10-16] MEDS ORDERED: MONT-46 PO (14:12)
[2024-10-16] MEDS ORDERED: ALBU18HF7 IH (14:12)
[2024-10-16] MEDS ORDERED: PRED50TA2 PO (14:12)
--- NOTE | 2024-10-16 14:13 | DS ---
Discharge Summary Hospital Course Summary: Patient is a 29-year-old female with a past medical history of asthma who presented to the hospital secondary to headaches, cough and shortness of breaths. Patient states for the past2 days she has been having cough and associated shortness of breath. She is unable to perform her daily activities secondary to shortness of breath. Additionally she states she had difficulty speaking and her lungs feeling tight. Patient states she uses albuterol as needed and has no other inhalers. Patient also notes frontal headaches which started2 days ago and associated with fevers. Patient denies any neck pain, chest pain, abdominal pain, nausea, vomiting. Patient states she has had previous asthma exacerbations in the past. On presentation to the ED patient was febrile and tachycardic and tachypneic. Patient was placed on an aerosol mask. Patient troponins are negative x1. Serum was negative. Patient is negative for flu and COVID. Patient is positive for group a strep. Chest x-ray shows no acute infiltrates but lungs were noted to be hyperinflated. Patient was admitted to the ICU due to tachypnea and tachycardia and unable to speak in full sentences. Critical Care was consulted. Patient was started on Solu-Medrol 60 mg q.6 hours and Rocephin and doxycycline. Patient was given Toradol for headache. Patient's peak flow is 150-200. And patient passed 6 minute walk. Patient states she feels better this morning after being given bronchodilators and steroids. Patient has been switched to oral antibiotics. Patient is able to speak complete sentences today. Patient has been advised to follow up with pulmonology outpatient. Patient has also been advised to follow up with her primary care physician in 3-5 days. Patient is being discharged home today on oral antibiotics, steroids, Singulair, albuterol, Advair. Patient has also been advised if the symptoms return or breathing difficulties to return to the nearest emergency department for treatment. Counseling Program Leader(s): Pulmonology Procedure(s): [place] [id number] [place] [id number] IMAGING REPORT Signed PATIENT: BAYRON WHITE MR#: [id number] : 1995 SEX: F AGE: 29 LOCATION: [facility] ORDER [id number] STATUS: ADM IN REPORT#: [id number] SERVICE 0544 REASON: SOB ORDERING PHYSICIAN: RICARDO CORDOBA MD PROCEDURE: CXR1VW - CHEST 1VW CHEST 1VW REASON: SOB COMPARISON: None. FINDINGS: Single view of the chest was obtained. Lungs are clear. Heart size is normal. There is no pulmonary vascular congestion. Mediastinum and bony thorax appear unremarkable. IMPRESSION: 1. Normal single view chest x-ray. DICTATED BY: ANNALEE GIBBS MD DATE: 10/14/241657 ELECTRONICALLY SIGNED BY: ANNALEE GIBBS MD DATE: 10/14/24 [address] [place] [address] IMAGING REPORT Signed PATIENT: BAYRON WHITE MR#: [id number] : 1995 SEX: F AGE: 29 LOCATION: [facility] ORDER 2330 STATUS: ADM IN REPORT#: [id number] SERVICE 0600 REASON: hypoxic ORDERING PHYSICIAN: JUNE COREAS PROCEDURE: CXR1VW - CHEST 1VW CHEST 1VW REASON: hypoxic COMPARISON: 10/14/2024 FINDINGS: Single view of the chest was obtained. Lungs are clear. Heart size is normal. There is no pulmonary vascular congestion. Mediastinum and bony thorax appear unremarkable. IMPRESSION: 1. Normal single view chest x-ray. DICTATED BY: ANNALEE GIBBS MD DATE: 10/15/2441 ELECTRONICALLY SIGNED BY: ANNALEE GIBBS MD DATE: 10/15/2444 Assessment/Plan: ASSESSMENT: Severe asthma exacerbation POA Acute hypoxic respiratory failure secondary to asthma exacerbation Sepsis POA source unclear Positive strep Sinus tachycardia Migraine headache Lactic acidosis Metabolic acidosis Discharge Instructions: Follow up with PCP in 3-5 days. Follow up with pulmonology in 3-5 days. If symptoms return please seek immediate attention to the nearest emergency department for treatment. Home Medications: Active Scripts Fluticasone/Salmeterol (ADVAIR 250-50 DISKUS) 14 Inh/Disk Inh, 1 PUFF IH BID for 30 Days, #1 EACH 0 Refills Prov:MARCELA GONZALES N 10/16/24 Prednisone (Prednisone) 50 Mg Tablet, 40 MG PO DAILY PRN for asthma for 5 Days, #5 TAB 0 Refills Prov:MARCELA GONZALES N 10/16/24 Albuterol Sulfate (Ventolin Hfa) 90 Mcg Hfa.aer.ad, 2 PUFF IH Q4HPRN PRN for wheezing for 30 Days, #18 GM 0 Refills Prov:MARCELA GONZALES N 10/16/24 Montelukast Sodium (Singulair 10Mg) 10 Mg Tab, 10 MG PO DAILY for asthma for 30 Days, #30 TAB 0 Refills Prov:MARCELA GONZALES N 10/16/24 Levofloxacin (Levofloxacin) 750 Mg Tablet, 1 TAB PO DAILY for 5 Days, #5 TAB 0 Refills Prov:MARCELA GONZALES N 10/16/24 Reported Medications Albuterol Sulfate (Ventolin Hfa) 90 Mcg Hfa.aer.ad, 2 PUFF IH Q4HPRN PRN for wh eezing for 30 Days, #18 GM 0 Refills 10/15/24 Discontinued Scripts Ondansetron (Ondansetron Odt) 4 Mg Tab.rapdis, 4 MG PO Q6HPRN PRN for NAUSEA/VOMITING for 4 Days, #16 TAB Prov:ANALIA GOMEZ [employer] 04/06/23 Dicyclomine HCl (Bentyl) 20 Mg Tab, 20 MG PO QID for abd pain for 5 Days, #20 TAB Prov:ANALIA GOMEZ [employer] 04/06/23 New Medications: Albuterol Sulfate (Ventolin Hfa) 90 Mcg Hfa.aer.ad 2 PUFF IH Q4HPRN PRN for wheezing for 30 Days, #18 GM 0 Refills Fluticasone/Salmeterol (Advair 250-50 Diskus) 14 Inh/Disk Inh 1 PUFF IH BID for 30 Days, #1 EACH 0 Refills Levofloxacin (Levofloxacin) 750 Mg Tablet 1 TAB PO DAILY for 5 Days, #5 TAB 0 Refills Montelukast Sodium (Singulair 10Mg) 10 Mg Tab 10 MG PO DAILY for asthma for 30 Days, #30 TAB 0 Refills Prednisone (Prednisone) 50 Mg Tablet 40 MG PO DAILY PRN for asthma for 5 Days, #5 TAB 0 Refills Continued Medications: Albuterol Sulfate (Ventolin Hfa) 90 Mcg Hfa.aer.ad 2 PUFF IH Q4HPRN PRN for wheezing for 30 Days, #18 GM 0 Refills Time spent arranging discharge: 1-30 minutes ATTESTATION BY PHYSICIAN I have seen and examined the patient. I reviewed the documentation, medical decision making, and treatment plan as noted by the resident provider above. I agree with the findings and plan of care. John Henry MD, PRIYA N Oct 16, 2024 14:13
[2024-10-16] MEDS ORDERED: ADV500 IH (15:40)
[2024-10-16] MEDS ORDERED: ADV250 IH (16:02)
--- NOTE | 2024-10-16 16:45 | NUR ---
Discharge Patient been discharge home, all discharge instructions given to patient, all questions answered, no concerns at this time, all belongings take by patient.
--- NOTE | 2024-10-16 20:35 | PN ---
[facility] PROGRESS NOTE Date Patient Seen: Oct 16, 2024 Time of Visit: 20:31 Supervising Physician: CELE ACE MD Primary Care Physician: Self referral Outpatient Specialists: none Inpatient Consults: HAN PROBLEM LIST: Acute hypoxic respiratory failure secondary to asthma exacerbation Acute asthma exacerbation POA Acute sepsis on admission secondary to Streptococcus infection Positive strep infection POA Active tobacco use disorder INTERVAL HISTORY: 29 years old woman seen and evaluated by me at bedside, the events of the last 24 hours noted and her clinical chart review. The patient is awake, on room air, up and ambulatory without assistance Denies fevers, denies cough, denies congestion. Good appetite, no constipation. Good urinary output without urinary symptoms. REVIEW OF SYSTEMS: 12 point ROS reviewed with patient. Pertinent positives mentioned above. Otherwise negative. PHYSICAL EXAM: GENERAL: alert, weak, awake oriented x 3 HEENT: EOMI, Sclera non icteric, moist mucosa NECK: Supple, no JVD, trachea midline LUNGS: Grossly clear bilaterally, no wheezing. HEART: Regular rate and rhythm. Normal S1 and S2, without murmurs ABD: Abdomen soft, nontender. Bowel sounds present EXT: No clubbing cyanosis or edema NEURO: Alert and oriented to person, follows commands Vital Signs (last 8hr) Date Time Temp Pulse Resp B/P (MAP) Pulse Ox O2 Delivery O2 Flow Rate FiO2 10/16/24 16:00 98.1 97 19 122/72 97 Room Air LABS: Hematology Labs: Test 10/15/24 06:14 Range/Units White Blood Count 19.6 H 4.8-10.8 K/uL Red Blood Count 4.18 4.00-5.50 MIL/uL Hemoglobin 12.3 12.0-16.0 g/dL Hematocrit 38.0 36-48 % Mean Corpuscular Volume 90.9 79-99 fL Mean Corpuscular Hemoglobin 29.4 27.0-33.0 pg Mean Corpuscular Hemoglobin Concent 32.4 32.0-36.0 g/dL Red Cell Distribution Width 14.6 11.0-15.5 % Platelet Count 256 130-400 K/uL Mean Platelet Volume 9.8 7.5-10.5 fL Immature Granulocyte % (Auto) 0.6 0-1 % Neutrophils (%) (Auto) 91.9 H 40.0-77.0 % Lymphocytes (%) (Auto) 3.7 L 21.0-51.0 % Monocytes (%) (Auto) 3.6 3.0-13.0 % Eosinophils (%) (Auto) 0.0 0.0-8.0 % Basophils (%) (Auto) 0.2 0.0-5.0 % Neutrophils # (Auto) 18.0 H 1.8-7.7 K/uL Lymphocytes # (Auto) 0.7 L 1.0-4.8 K/uL Monocytes # (Auto) 0.7 0.1-1.0 K/uL Eosinophils # (Auto) 0.00 0.00-0.70 K/uL Basophils # (Auto) 0.04 0.00-0.20 K/uL Absolute Immature Granulocyte (auto 0.11 0-1 K/uL Nucleated Red Blood Cells 0.0 0.0-0.19 % Chemistry Labs: Test 10/15/24 11:17 10/15/24 06:14 Range/Units Lactic Acid Level 3.6 H 0.8-2.5 mmol/L Sodium Level 144 136-145 mmol/L Potassium Level 4.2 3.5-5.1 mmol/L Chloride Level 113 H 101-111 mmol/L Carbon Dioxide Level 24 21-32 mmol/L Blood Urea Nitrogen 6 L 7-18 mg/dL Creatinine 0.7 0.5-1.0 mg/dL Glomerular Filtration Rate Calc 121 >90 mL/min Random Glucose 139 H 70-105 mg/dL Total Calcium 8.8 8.5-10.1 mg/dL Total Bilirubin 0.2 0.2-1.0 mg/dL Aspartate Amino Transf (AST/SGOT) 20 10-37 U/L Alanine Aminotransferase (ALT/SGPT) 15 12-78 U/L Alkaline Phosphatase 56 50-136 U/L C-Reactive Protein, Quantitative 30.40 H 0.5-3.0 mg/L Total Protein 7.1 6.0-8.3 g/dL Albumin 3.4 L 3.5-5.0 g/dL Procalcitonin < 0.05 L 0.05-0.5 ng/mL DIAGNOSTICS / RADIOLOGY RESULTS: [ Reviewed at bedside with nurse ] PLAN The patient is hemodynamically stable for safe medical discharge from the hospital Advised to stop smoking Stop Advair inhaler Schedule outpatient appointment with [facility] ATTESTATION BY PHYSICIAN Clinical note transcribed by Odilon Porter, medical sales associate and I attest to the accuracy of the note Cele Ace MD I personally scribed for CELE ACE MD ([email or web address]) on 10/16/24 at 20:35. Electronically submitted by Odilon Porter ([email or web address]). CELE ACE MD Oct 16, 2024 20:35
--- NOTE | 2024-10-17 11:24 | NUR ---
JOHNNY CALL: SHARONA PHARMACIST FROM [facility] CALLED TO VERIFY THE DOSE OF THE STEROID THAT WAS PRESCRIBED FOR PT UPON DISCHARGE. I LOOKED INTO PT MEDS TO VERIFY THEM WITH HER.
== END 2024-10-16 16:40 | disposition home or self-care (01) | DRG 871 ==
LOC: EDH 05:35 → EDHIP 05:36 → UNDOADMIN 08:47 → EDHIP 10-15 01:21 → 4BH 10-15 01:21
PROVIDERS: ADMIT Internal Medicine; ATTEND Internal Medicine
DX: A41.9 Sepsis, unspecified organism (principal); J96.01 Acute respiratory failure with hypoxia; J45.901 Unspecified asthma with (acute) exacerbation; E87.20 Acidosis, unspecified; R65.20 Severe sepsis without septic shock; G43.909 Migraine, unspecified, not intractable, without status migrainosus; J02.0 Streptococcal pharyngitis; F17.200 Nicotine dependence, unspecified, uncomplicated
CPT/HCPCS: 36415; 36600; 71045; 80048; 80053; 81001; 82010; 82435; 82550; 82803; 82947; 83036; 83605; 83615; 83735; 84132; 84145; 84295; 84443; 84484; 84703; 85018; 85025; 86140; 87040; 87071; 87086; 87205; 87635; 87804; 87880; 93005; 94010; 94640; 94664; 94760; 96365; 96367; 96375; 99285; G0378; J0696; J1650; J1885; J2405; J2470; J2543; J2919; J3475; J3490; J7030; J7120